=== PATIENT | male | born 2000 | race Two or more races ===

== ENCOUNTER 2025-02-20 19:30 | Emergency (ER) | payer MEDICAID, OTHER ==
[~2025-02-20] VITALS: Ht 170.2 cm; Wt 82.9 kg
[2025-02-20 19:36] VITALS: TEMP 99.3
[2025-02-20 21:21] VITALS: BP 128/63; PULSE 51; RESP 16; O2SAT 95
[2025-02-20] MEDS ORDERED: ACET500T58 PO (21:23)
--- NOTE | 2025-02-20 21:23 | ED.PDOC ---
HPI (NEURO) HPI Comments 24-year-old male presents to ER with complaints of headache x5 days. Patient reports he has been experiencing intermittent right-sided headache x5 days. He rates his current right-sided headache pain a 4/10 and denies use of medications for current symptoms. Patient presents to ER ambulatory on arrival, alert and oriented x4, with steady gait, in no distress. Denies fever, recent illness, runny nose, nausea/vomiting, numbness/tingling, dizziness, vision changes, head injury or any further symptoms/complaints Chief Complaint: Headache Time Seen by MD: 19:50 Primary Care Provider: UNKNOWN Reviewed Notes: Nurses Notes, Medications, Allergies Information Source: Patient Mode of Arrival: Ambulatory Past Medical History PAST MEDICAL HISTORY: Denies Surgical History: Denies all surgeries Family History Family History: Unknown Social History Smoker: Non-Smoker Alcohol: Denies ETOH Use Drugs: Denies Drug Use Lives In: Home Constitutional: denies: chills, diaphoresis, fatigue, fever, malaise, sweats, weakness, others EENTM: denies: blurred vision, double vision, ear bleeding, ear discharge, ear drainage, ear pain, ear ringing, eye pain, eye redness, hearing loss, mouth pain, mouth swelling, nasal discharge, nose bleeding, nose congestion, nose pain, photophobia, tearing, throat pain, throat swelling, voice changes, others Respiratory: denies: cough, hemoptysis, orthopnea, SOB at rest, shortness of breath, SOB with excertion, stridor, wheezing, others Cardiovascular: denies: chest pain, dizzy spells, diaphoresis, Dyspnea on exertion, edema, irregular heart beat, left arm pain, lightheadedness, palpitations, PND, syncope, others Gastrointestinal: denies: abdomen distended, abdominal pain, blood streaked bowels, constipated, diarrhea, dysphagia, difficulty swallowing, hematemesis, melena, nausea, poor appetite, poor fluid intake, rectal bleeding, rectal pain, vomiting, others Genitourinary: denies: burning, dysuria, flank pain, frequency, hematuria, incontinence, penile discharge, penile sore, pain, testicle pain, testicle swelling, urgency, others Neurological: reports: others (As stated in HPI) Musculoskeletal: denies: back pain, gout, joint pain, joint swelling, muscle pain, muscle stiffness, neck pain, others Integumetry: denies: bruises, change in color, change in hair/nails, dryness, laceration, lesions, lumps, rash, wounds, others Allergic/Immunocompromised: denies: Difficulty Healing, Frequent Infections, Hives, Itching, others Hematologic/Lymphatic: denies: anemia, blood clots, easy bleeding, easy b ruising, swollen glands, others Endocrine: denies: excessive hunger, excessive sweating, excessive thirst, excessive urination, flushing, intolerance to cold, intolerance to heat, unexplained weight gain, unexplained weight loss, others Psychiatric: denies: anxiety, bipolar disorder, depression, hopeless, panic disorder, schizophrenia, sleepless, suicidal, others Physical Exam General Appearance: No Apparent Distress HEENT: Normal ENT Inspection, PERRL/EOMI, Pharynx Normal, TMs Normal Neck: Full Range of Motion, Non-Tender, Normal Respiratory: Chest Non-Tender, Lungs Clear, No Accessory Muscle Use, No Respiratory Distress, Normal Breath Sounds Cardiovascular: No Murmur, No Gallop, Regular Rate/Rhythm Breast Exam: Deferred Gastrointestinal: NOT DONE Genitalia: Deferred Pelvic: Deferred Rectal: Deferred Extremities: Normal capillary refill, Normal range of motion Neurologic: Alert, [employer] II-XII nml as Tested, No Motor Deficits, Normal Affect, Normal Mood, No Sensory Deficits Cerebellar Function: Normal Reflexes: Normal Skin: Dry, Normal Color, Warm Lymphatic: No Adenopathy Was a procedure done? Was a procedure done?: No Sedation Sedation?: No Differential Diagnosis (SZ) Headache: Subarachnoid Hemorrhage, Subdural Hemorrhage, Mass Lesion X-Ray, Labs, Meds, VS Vital Signs Date Time Temp Pulse Resp B/P (MAP) Pulse Ox O2 Delivery O2 Flow Rate FiO2 02/20/25 19:36 99.3 100 17 151/71 98 99.3 Patient had improvement in symptoms, neurological examination-unremarkable and in no distress prior to discharge Advised to drink plenty of fluids Advised to follow up with PCP in 1-2 days Patient verbalized understanding and agreeable with current plan of care Advised to return to ER immediately if symptoms worsen Time of 1ST Reevaluation: 21:04 Reevaluation 1ST: N/A Patient Education/Counseling: Diagnosis, Treatment, Prognosis, Need For Follow Up Family Education/Counseling: No Family Present Departure 1 Departure Time of Disposition: 21:21 Impression: Primary Impression: Migraine Qualified Codes: G43.909 - Migraine, unspecified, not intractable, without status migrainosus Disposition: HOME / SELF CARE / HOMELESS Condition: Stable e-Prescriptions Acetaminophen (Acetaminophen) 500 Mg Tab 500 MG PO Q4HPRN, #30 TAB 0 Refills Prov: KIKE CONTEH 02/20/25 Discharged With: Self Critical Care Note Critical Care Time?: No Stability Stability form required: No Heart Score Heart Score: Heart Score Response (Comments) Value History N/A 0 EKG N/A 0 Age N/A 0 Risk Factors N/A 0 Troponin N/A 0 Total 0 KIKE CONTEH Feb 20, 2025 21:23
== END 2025-02-20 21:29 | disposition home or self-care (01) ==
LOC: ER 19:30
DX: G43.909 Migraine, unspecified, not intractable, without status migrainosus (principal)